=== PATIENT | female | born 1965 | race Caucasian/White ===

== ENCOUNTER → 2021-03-19 15:32 | Outpatient (CLI) | payer SELFPAY ==
--- NOTE | 2021-03-19 15:50 | RAD_ITS ---
STUDY: X-RAY - RIGHT ELBOW REASON FOR EXAM: Female, 55 years old. Right elbow pain. TECHNIQUE: 3 view(s) of the elbow. COMPARISON: None. FINDINGS: Normal visualized humerus, radius and ulna. Normal radiocapitellar and ulnotrochlear articulations. The soft tissue structures are unremarkable. RAD/Elbow min 3 Views IMPRESSION: Normal x-ray examination of the elbow. Electronically Signed: Jeff Montoya MD at 11:07 EST , Service support ,
== END ==
PROVIDERS: PCP Family Medicine; Referring Provider Family Medicine; Visit Provider Family Medicine
DX: M25.521 Pain in right elbow (principal)
CPT/HCPCS: 73080

== ENCOUNTER 2021-07-12 22:14 | Emergency (ER) | payer MEDICAID, SELFPAY ==
[2021-07-12 22:15] VITALS: BP 144/71; PULSE 67; RESP 16; TEMP 36.6; O2SAT 97; BMI 27.1
[2021-07-12 22:34] LABS: Bacteria 0 SEEN /hpf (None Seen); Mucous, Urine 0 SEEN /hpf (<or=2+); Red Blood Cells-Urine 0 SEEN /hpf (0-5); Squamous Epithelial Cells - UA 0 SEEN /hpf (5-10); White Blood Cells 0 SEEN /hpf (0-5)
[2021-07-12 22:38] LABS: Color, Urine Yellow (Yellow); Glucose, Dipstick Normal (Normal); Ketone-Dipstick Negative (Negative); Leukocyte Esterase-Dipstick Negative /ul (Negative); Nitrite-Dipstick Negative (Negative); Occult Blood-Urine Negative /ul (Negative); Protein-Dipstick Negative (Negative); Specific Gravity, Urine 1.025 (1.002-1.030); Urine Bilirubin Dipstick Negative (Negative); Urine Clarity Clear (Clear); Urine Urobilinogen Normal (Normal)
[2021-07-12] MEDS: Ondansetron 4 MG/2 ML Vial IV (23:33)
[2021-07-12] MEDS: 0.9% Normal Saline 1,000 ML 1000 ML IV (23:33)
[2021-07-12] MEDS: Morphine 4 MG/ML Syringe IV (23:35)
[2021-07-12 23:44] LABS: Absolute Lymphocyte Count 2.24 X10^3/uL (0.83-4.51); Absolute Neutrophil Count 2.5 X10^3/uL (2.0-7.7); Basophil# 0.03 X10^3/uL; Basophil% 0.6 % (0-1); Eosinophil# 0.14 X10^3/uL; Eosinophils% 2.6 % (0-5); Hematocrit 40.3 % (37-47); Hemoglobin 13.4 g/dL (12.0-15.0); Lymphocyte # 2.24 X10^3/ul (0.83-4.51); Lymphocyte % 42.1 % (19-41); Mean Corp Hgb Conc 33.3 g/dL (32-36); Mean Corpuscular Hgb 30.3 pg (27.0-32.0); Mean Corpuscular Volume 91.2 fL (81-99); Mean Platelet Vol. 10.6 fl (6.2-12.0); Monocyte# 0.44 X10^3/uL; Monocyte% 8.3 % (0-10); NRBC Flagged by Analyzer 0 % (0-5); Neutrophil # 2.46 X10^3/uL (2.7-7.7); Neutrophil % 46.2 % (47-70); Platelet Count 210 K/mm3 (150-450); RBC Distribution Width CV 11.8 % (11.6-14.6); RBC Distribution Width SD 39.7 fl (35.1-43.9); Red Blood Count 4.42 M/mm3 (4.2-5.4); White Blood Count 5.3 K/mm3 (4.4-11.0)
[2021-07-12 23:46] LABS: Internal QC Validated? YES +Cl - CLEAR BKGD; Pregnancy, Serum, hCG Quali. NEGATIVE Negative
[2021-07-12 23:49] LABS: Anion Gap 3 (5-15); BUN 13 mg/dL (7-18); Calcium,Total 8.5 mg/dL (8.5-10.1); Chloride 109 mmol/L (98-107); Creatinine, Serum 0.76 mg/dL (0.55-1.02); EST Glomerular Filtration Rate 83 mL/min (>60); Est Glom Filt Rate - Afr Amer 101 mL/min (>60); Estimated Creatinine Clearance 72.22 ml/min; Glucose 120 mg/dL (74-106); Potassium 3.7 mmol/L (3.5-5.1); Sodium Level 140 mmol/L (136-145)
--- NOTE | 2021-07-13 | CT_ITS ---
STUDY: CT ABDOMEN AND PELVIS WITHOUT CONTRAST REASON FOR EXAM: Female, 55 years old. Right flank pain RADIATION DOSAGE (If Supplied By Facility): CTDIvol = ( 12.26 ) mGy, DLP = ( 591.87 ) mGycm TECHNIQUE: Transaxial images were obtained from the dome of the diaphragm to the symphysis pubis without oral contrast, and without intravenous contrast. Sagittal and coronal images were reconstructed. Individualized dose optimization techniques were used for this CT. COMPARISON: None. FINDINGS: LOWER CHEST: Minimal dependent atelectasis. LIVER: Fatty infiltration. GALLBLADDER AND BILIARY TREE: Grossly unremarkable. PANCREAS: Grossly unremarkable. SPLEEN: Grossly unremarkable. ADRENAL GLANDS: Grossly unremarkable. KIDNEYS AND URETERS: No calculi demonstrated. No hydronephrosis. There is a small calcific density in the right lower pelvis that appears to be phlebolith adjacent to the ureter rather than ureteral calculus. PERITONEUM: No free air. No free fluid. BOWEL: A few scattered diverticula in the colon. No bowel obstruction. APPENDIX: Visualized and unremarkable. No evidence of acute appendicitis. VESSELS: Abdominal aorta is normal caliber. REPRODUCTIVE ORGANS: Grossly unremarkable URINARY BLADDER: Grossly unremarkable. ABDOMINAL WALL: Unremarkable. BONES: No acute abnormalities. CT/Abdomen/Pelvis without Cont IMPRESSION: No acute findings. Colonic diverticulosis without evidence of acute diverticulitis. Electronically Signed: Marissa Hay MD at 0:28 EDT ,
--- NOTE | 2021-07-13 00:28 | EX.ED.DYSGE1 ---
HPI History of Present Illness Chief Complaint: Flank Pain Informant: patient Onset/Context/Timing Onset: Days (4) Context: Gradual Onset Timing: Continuous Quality: Constant aching but stabbing at times Location: Right flank Worsened by: Nothing Relieved by: Nothing Narrative Narrative: Patient presents with right flank pain that has been getting worse over the last 4 days. Patient states her pain began rather suddenly. Patient describes her pain is aching but at times becomes stabbing. Patient states the pain is localized to the right flank. Patient states nothing makes it better nothing makes it worse. Patient admits to some subjective chills but denies any fevers. Patient admits to nausea but denies any vomiting. Patient denies any dysuria or hematuria. [facility] Medical History Anxiety Hyperlipemia TIA (transient ischemic attack) TMJ (dislocation of temporomandibular joint) Home Medications alprazolam 0.5 mg PO QHS 07/12/21 [History Last Taken Unknown] aspirin 81 mg PO DAILY 07/12/21 [History Last Taken Unknown] buspirone 15 mg PO BID 07/12/21 [History Last Taken Unknown] sertraline 50 mg PO DAILY PRN PRN 07/12/21 [History Last Taken Unknown] Allergy/AdvReac Type Severity Reaction Status Date / Time latex Allergy Anaphylaxis Verified 07/12/21 22:16 Social History Smoking Status: Never smoker ROS ROS ED Constitutional Constitutional ED: Reports chills and subjective; Denies fever(s) Eyes Eyes: Denies blurry vision or change in vision ENT ENT ED: Denies rhinorrhea or sore throat Cardiovascular Cardiovascular: Denies chest pain or palpitations Respiratory/Chest Respiratory/Chest: Denies cough or dyspnea Gastrointestinal Gastrointestinal: Reports nausea; Denies vomiting Genitourinary Genitourinary ED: Denies dysuria or hematuria Musculoskeletal Musculoskeletal: Reports back pain and neck pain Integumentary Denies abscess or rash Neurologic Neurologic: Reports headache(s); Denies weakness Allergic/Immunologic Allergic/Immunologic ED: Denies mouth swelling or urticaria EXAM Physical Exam Const Vital Signs: 07/12/21 22:15 Temperature 97.8 F Temperature Source Temporal Pulse Rate 67 Respiratory Rate 16 Blood Pressure 144/71 H Blood Pressure Mean 95 Pulse Ox 97 Oxygen Delivery Method Room Air Positive well nourished and well developed General Appearance ED: well developed and NAD HEENT Reports moist mucous membranes Neck supple and no JVD Resp normal respiratory effort and clear to auscultation bilaterally Cardio regular rate, regular rhythm and no murmurs GI normal to inspection, nondistended, normoactive bowel sounds Palpation: soft and tender RLQ; Negative for guarding or rebound tenderness present Back/Spine General Back: CVA tenderness right Extremity normal to inspection General Extremety ED: Negative for edema or tenderness General Extremity: Negative for edema Neuro oriented x3, CN's II-XII intact bilaterally and no sensory deficits noted Sensorium / Orientation: alert Motor Exam: strength 5/5 throughout Psych mental status grossly normal Skin no rashes or lesions noted MDM MDM MDM Narrative Medical decision making narrative: Patient was given IV fluids, morphine, and Zofran here. CBC was within normal limits. Serum hCG was negative. Urinalysis does not show any evidence of urinary tract infection. Basic metabolic profile was essentially within normal limits. CT scan of the abdomen pelvis was obtained. There is no acute abnormality noted. There is colonic diverticulosis but no evidence of diverticulitis. This was interpreted by the radiologist and reviewed by myself. Patient was advised of her findings. Patient is feeling better on reevaluation. Patient was instructed to follow-up with her primary care physician in 5 to 7 days for further evaluation. Patient understood and was agreeable with the plan. All questions were answered. Lab Data Attestation: I reviewed the patient's lab results. Labs: Laboratory Results - last 24 hr 07/12/21 07/12/21 07/12/21 22:25 23:05 23:05 WBC 5.3 RBC 4.42 Hgb 13.4 Hct 40.3 MCV 91.2 MCH 30.3 MCHC 33.3 RDW Std Deviation 39.7 RDW Coeff of Ольга 11.8 Plt Count 210 MPV 10.6 Immature Gran % (Auto) 0.200 Neut % (Auto) 46.2 L Lymph % (Auto) 42.1 H [place] % (Auto) 8.3 Eos % (Auto) 2.6 Baso % (Auto) 0.6 Absolute Neuts (auto) 2.5 Absolute Lymphs (auto) 2.24 Nucleated RBC % 0 Sodium Potassium Chloride Carbon Dioxide Anion Gap BUN Creatinine Estim Creat Clear Calc Est GFR (MDRD) Af Amer Est GFR (MDRD) Non-Af BUN/Creatinine Ratio Glucose Calcium Serum , Qual NEGATIVE Urine Color Yellow Urine Clarity Clear Urine pH 5.0 Ur Specific [place] 1.025 Urine Protein Negative Urine Glucose (UA) Normal Urine Ketones Negative Urine Occult Blood Negative Urine Nitrite Negative Urine Bilirubin Negative Urine Urobilinogen Normal Ur Leukocyte Esterase Negative Urine RBC 0 SEEN Urine WBC 0 SEEN Ur Squamous Epith Cells 0 SEEN Urine Bacteria 0 SEEN Urine Mucus 0 SEEN 07/12/21 23:05 WBC RBC Hgb Hct MCV MCH MCHC RDW Std Deviation RDW Coeff of Ольга Plt Count MPV Immature Gran % (Auto) Neut % (Auto) Lymph % (Auto) [place] % (Auto) Eos % (Auto) Baso % (Auto) Absolute Neuts (auto) Absolute Lymphs (auto) Nucleated RBC % Sodium 140 Potassium 3.7 Chloride 109 H Carbon Dioxide 28.0 Anion Gap 3 L BUN 13 Creatinine 0.76 Estim Creat Clear Calc 72.22 Est GFR (MDRD) Af Amer 101 Est GFR (MDRD) Non-Af 83 BUN/Creatinine Ratio 17.0 Glucose 120 H Calcium 8.5 Serum , Qual Urine Color Urine Clarity Urine pH Ur Specific [place] Urine Protein Urine Glucose (UA) Urine Ketones Urine Occult Blood Urine Nitrite Urine Bilirubin Urine Urobilinogen Ur Leukocyte Esterase Urine RBC Urine WBC Ur Squamous Epith Cells Urine Bacteria Urine Mucus Radiography Diagnostic Testing: Clinical Impression(s) from Imaging Studies Abdomen/Pelvis CT 07/13/21 00:00 IMPRESSION: No acute findings. Colonic diverticulosis without evidence of acute diverticulitis. Electronically Signed: Marissa Hay MD at 0:28 EDT , Discharge Plan Triage Chief Complaint: Flank Pain ED Provider: Fadi Tavarez Dx/Rx/DC Orders Clinical Impression: Acute right flank pain, Abdominal pain in female Instructions: ED Flank Pain, Uncertain Cause Prescriptions: No Action alprazolam 0.25 mg Tablet 0.5 mg PO QHS RF: 0 aspirin 81 mg Tablet 81 mg PO DAILY RF: 0 sertraline 50 mg Tablet 50 mg PO DAILY PRN PRN (Reason: Anxiety) RF: 0 buspirone 15 mg Tablet 15 mg PO BID RF: 0 Primary Care Provider: Frankie Cedeño Referrals: Frankie Cedeño MD [Primary Care Provider] - 5-7 Days Disposition Disposition: Home, Self Care
[2021-07-13 01:35] VITALS: BP 106/70; PULSE 59; RESP 16; O2SAT 96
== END 2021-07-13 01:35 | disposition home or self-care (01) ==
PROVIDERS: Emergency Provider Emergency Medicine; PCP Family Medicine; Visit Provider Emergency Medicine
DX: R10.31 Right lower quadrant pain (principal); R11.0 Nausea; E78.5 Hyperlipidemia, unspecified; F41.9 Anxiety disorder, unspecified; Z79.82 Long term (current) use of aspirin; Z79.899 Other long term (current) drug therapy; Z86.73 Personal history of transient ischemic attack (TIA), and cerebral infarction without residual deficits
CPT/HCPCS: 74176; 80048; 81001; 84703; 85025; 96361; 96374; 96375; 99282; J7030; A4216; J2405

== ENCOUNTER 2022-03-20 10:25 | Day surgery (SDC) | payer MEDICAID, SELFPAY ==
--- NOTE | 2022-03-12 09:07 | RAD_ITS ---
STUDY: X-RAY CHEST REASON FOR EXAM: Female, 56 years old. CHEST PAIN PREOP TECHNIQUE: XR Chest 2 Views COMPARISON: None FINDINGS: There is no demonstrated pleural abnormality. Normal size heart. Normal mediastinum and enoc. Normal visualized pulmonary arteries. Normal visualized aortic arch and descending thoracic aorta. Normal visualized thoracic spine. Normal visualized ribs, clavicles, and shoulders. There is no demonstrated abnormality of the visualized soft tissue structures of the upper abdomen. RAD/Chest PA and Lateral IMPRESSION: There are no acute findings. Electronically Signed: Sebastián Prescott MD at 17:51 EST ,
--- NOTE | 2022-03-12 09:07 | EKG12_ITS ---
Test Reason : PRE-OP Blood Pressure : / mmHG Vent. Rate : 066 BPM Atrial Rate : 066 BPM P-R Int : 126 ms QRS Dur : 076 ms QT Int : 414 ms P-R-T Axes : 052 049 030 degrees QTc Int : 434 ms Normal sinus rhythm Normal ECG Confirmed by LEILANI DOMINGUEZ, YOMI ([id number]), primer expeditor and drier DOUG BLAIR ([id number]) on 03/13/2022 8:33:04 AM Referred By: Jesus Weiss Confirmed By:YOMI DUKE MD
[2022-03-12 10:51] LABS: Absolute Lymphocyte Count 1.78 X10^3/uL (0.83-4.51); Absolute Neutrophil Count 3.3 X10^3/uL (2.0-7.7); Basophil# 0.04 X10^3/uL; Basophil% 0.7 % (0-1); Eosinophils% 1.8 % (0-5); Hematocrit 42.9 % (37-47); Hemoglobin 13.9 g/dL (12.0-15.0); Lymphocyte # 1.78 X10^3/ul (0.83-4.51); Lymphocyte % 31.5 % (19-41); Mean Corp Hgb Conc 32.4 g/dL (32-36); Mean Corpuscular Hgb 29.7 pg (27.0-32.0); Mean Corpuscular Volume 91.7 fL (81-99); Mean Platelet Vol. 10.5 fl (6.2-12.0); Monocyte# 0.44 X10^3/uL; Monocyte% 7.8 % (0-10); NRBC Flagged by Analyzer 0 % (0-5); Neutrophil # 3.27 X10^3/uL (2.7-7.7); Neutrophil % 57.8 % (47-70); Platelet Count 221 K/mm3 (150-450); RBC Distribution Width CV 12.1 % (11.6-14.6); RBC Distribution Width SD 40.8 fl (35.1-43.9); Red Blood Count 4.68 M/mm3 (4.2-5.4); White Blood Count 5.7 K/mm3 (4.4-11.0)
[2022-03-12 11:28] LABS: Anion Gap 6 (5-15); BUN 12 mg/dL (7-18); BUN/Creat Ratio 13.4 RATIO (10-20); Calcium,Total 8.7 mg/dL (8.5-10.1); Chloride 105 mmol/L (98-107); EST Glomerular Filtration Rate 69 mL/min (>60); Est Glom Filt Rate - Afr Amer 84 mL/min (>60); Glucose 92 mg/dL (74-106); Potassium 3.6 mmol/L (3.5-5.1); Sodium Level 140 mmol/L (136-145)
[2022-03-20] VITALS (11 sets, daily range): BP systolic 113–157; BP diastolic 57–89; PULSE 67–85; RESP 16–18; TEMP 36–36.8; O2SAT 92–98; BMI 29.9
[2022-03-20] MEDS: Lactated Ringers 1,000 ML 15 ML IV (11:09)
[2022-03-20] MEDS: Cefazolin 2 GM in 0.9% Normal Saline 100 ML IV (12:43)
--- NOTE | 2022-03-20 12:50 | RAD_ITS ---
STUDY: X-RAY - LEFT WRIST REASON FOR EXAM: Female, 56 years old. PAIN TECHNIQUE: 5 intraoperative view(s) of the wrist were obtained. COMPARISON: None. FINDINGS: 5 limited intraoperative C-arm films were performed as the patient has undergone surgery to remove the trapezium. No intraoperative complications noted. RAD/Wrist min 3 Views IMPRESSION: No intraoperative complications during surgery to remove the trapezium Electronically Signed: Stan Kathleen MD at 8:43 EST ,
[2022-03-20] MEDS: HYDROcodone Bitartrate/Apap 5/325 Tablet PO (17:17)
--- NOTE | 2022-03-20 23:18 | PCM.OPRPT ---
Report of Operation Date of Procedure: 03/20/22 Description of Surgical Findings:: Preoperative diagnosis: Left first carpal metacarpal joint arthritis Postoperative diagnosis: Left first carpal metacarpal joint arthritis Procedure: Left thumb trapeziectomy with ligament reconstruction tendon interposition with flexor carpi radialis tendon transfer Surgeon: Jesus Weiss DO Display Coordinator: None Anesthesia: General endotracheal Anesthesiologist: Dr. Welsh Complications: None apparent Drains: None Estimated blood loss: 10 cc Urinary output: None measured IV fluids: Per anesthesia record Specimens: None Surgical implants: Arthrex 4 mm x 10 mm Bio-Tenodesis screw Surgical indications: This is a 56-year-old male seen in the outpatient setting diagnosed with a left basal joint arthritis of her first CMC. She failed nonoperative management with activity modification, bracing and corticosteroid injections. She had end-stage arthritis on x-ray with dorsal and radial subluxation of the first metacarpal base. She had no hyperextension deformity of his metacarpal phalangeal joint of the thumb. Right first carpometacarpal joint arthroplasty in the form trapeziectomy with ligament reconstruction tendon interposition with flexor carpi radialis tendon transfer was offered. The risk, benefits, alternatives to procedure were reviewed with patient at length in the outpatient setting and he agreed to proceed. Risks included but were not limited to bleeding, infection, loss of life or limb, risk of anesthesia, subsidence of metacarpal base, persistent pain, need for additional surgery, stiffness, loss of hand function, neurovascular injury. Patient expressed understanding wish to proceed with surgery. Description of procedure: Patient was seen in preoperative holding area. He was identified by name, medical record number, date of . The operative extremity was marked with a surgical marker. We confirmed informed consent with the patient and all questions were answered to his satisfaction. At time of her procedure, patient was brought to the operative suite and positioned supine a standard operating table. All bony prominences were well-padded. General anesthesia was induced and endotracheal tube placed. The left upper extremity was then prepped for surgery by first applying a well-padded pneumatic tourniquet to the left upper arm. The hand table attached to the left side of the table. We spun the bed 90 degrees. The right upper extremities then prepped and draped in normal, sterile orthopedic fashion. 2 g Ancef was administered prior to incision by anesthesia staff. We performed a timeout at this point confirming side, site, and operation to be performed. No concerns voiced and elected to proceed. We first exsanguinated the right upper extremity with a an Esmarch bandage. Tourniquet was inflated to 250 mmHg were made up for approximately 45 minutes. I first made my incision overlying the anatomic snuffbox of the right dorsal first CMC. Incision was carried sharply through skin and subcutaneous tissue. Superficial veins were cauterized. Superficial sensory branches from the radial nerve were protected and retracted. We bluntly dissected through the fascia down to the level of the dorsal branch of the radial artery. I retracted this dorsally after cauterizing capsular branches from the radial artery using bipolar cautery. We then identified the dorsal radial capsule of the first CMC. This was split in line with the incision and elevated subperiosteally. The trapezium was then freed from capsular attachment sharply with 15 blade scalpel and subsequently with a McGlamry elevator. We were able to free the trapezium circumferentially and excised the trapezium en bloc. This was examined and had severe degenerative changes on the distal articular surface at the first CMC. The trapezoid was examined and appeared unremarkable. The FCR was identified in the wound. The wound was copiously irrigated with normal saline and any loose pieces of cartilage were debrided. I then turned my attention to the flexor carpi radialis and the right mid to distal forearm. A transverse incision approximately 5 mm was made overlying the flexor carpi radialis tendon. Superficial vein was identified and cauterized with bipolar cautery. I was then able to bluntly dissect through the tendon sheath down the level of the tendon. A Ragnell retractor was placed underneath the tendon and the tendon was pulled out of the wound. Sharply transected the tendon at the level of the incision. I then used a right angle hemostat to retrieve the flexor carpi radialis tendon from the distal wound. I split the flexor carpi radialis tendon in line with its fibers to obtain 2 distinct limbs. One limb was tagged in whipstitch fashion with a #2 Ethibond for transfer for our planned tendon transfer. I then prepared our bone tunnel for transfer. A drill pin was utilized to drill dorsal radial to ulnar ulnar across the base of the first metacarpal. My entry point was approximately 1 cm from the articular surface. This was directed to the insertion point of the [place] beak ligament. Proper trajectory was confirmed. FCR was protected through the drilling process with a McGlamry elevator. A cannulated drill bit was then placed over top of the drill pin and drilled bicortically. A nitinol wire was used to past the suture tack to the FCR tendon slip through the bone tunnel retrieving out the dorsoradial portion. I then applied a abduction force across the base the first metacarpal and placed it with my index finger in the space of the former trapezium with appropriate tension. My assistant manager of operations pulled some traction on the thumb. I pulled traction on the slip of the FCR and the Arthrex Bio-Tenodesis screw was then placed to secure the tendon. Minimal amount of shuck and no significant subsidence was noted after the tendon was secured. I then placed a running stitch through both slips of the tendon securing it to the palmar first CMC wrist capsule. Suture was tightened achieving an accordion configuration of the remaining FCR tendon to achieve an interposition graft. We then deflated the tourniquet. Hemostasis was excellent. I closed the capsule in watertight fashion with an 0 Vicryl suture. Subcutaneous layers were reapproximated with 3-0 Vicryl in a running subcuticular Monocryl. Dermabond was used to finally reapproximate skin. Sterile compression dressing was applied. A well-padded thumb spica fiberglass splint was then applied. Patient tolerated procedure well without apparent complication. She was subsequently extubated and transferred to PACU in stable condition. Patient received an axillary nerve block in the PACU for postoperative analgesia. Intraoperative medications: 2 g Ancef administered by anesthesia prior to incision Post Operative Plan: Weightbearing: Nonweightbearing operative extremity Antibiotics: Ancef 2 g x 1 dose preoperatively DVT Prophylaxis: 81 mg aspirin twice daily until follow-up starting postoperative day #1 Lyle: None Dressing: Maintain splint, keep it clean dry and intact until follow-up X-Rays: 2 weeks postop in the office Pain Medication: Oxycodone Rx upon discharge Follow-up: 2 weeks post-operatively with me in the office
== END 2022-03-20 18:38 | disposition home or self-care (01) ==
LOC: SDC 10:27 → AC 10:30
PROVIDERS: PCP Family Medicine; Referring Provider Student in an Organized Health Care Education/Training Program; Visit Provider Student in an Organized Health Care Education/Training Program
PROC: (CPT 25447; principal; 2022-03-20 13:15)
DX: S63.06 Subluxation and dislocation of metacarpal (bone), proximal end (principal); Z96.691 Finger-joint replacement of right hand; M18.12 Unilateral primary osteoarthritis of first carpometacarpal joint, left hand; F41.9 Anxiety disorder, unspecified; K21.9 Gastro-esophageal reflux disease without esophagitis; E78.5 Hyperlipidemia, unspecified; Z86.73 Personal history of transient ischemic attack (TIA), and cerebral infarction without residual deficits; E66.3 Overweight; Z68.29 Body mass index [BMI] 29.0-29.9, adult
CPT/HCPCS: 26480; 25310; 01810; 36415; 71046; 73110; 76000; 80048; 85025; 93005; C1776; J7120; J2405

== ENCOUNTER → 2022-03-26 | Outpatient (CLI) | payer MEDICAID, SELFPAY ==
--- NOTE | 2022-03-26 14:52 | VDLE_ITS ---
Reason For Study: SWELLING RIGHT LEFT GSV is normal. GSV is normal. CFV is compressible, spontaneous, phasic, CFV is compressible, spontaneous, phasic, competent and demonstrates normal competent, and demonstrates normal augmentation. augmentation. FV is compressible, spontaneous, phasic, FV is compressible, spontaneous, phasic, competent and demonstrates normal competent and demonstrates normal augmentation. augmentation. POP V is compressible, spontaneous, phasic, POP V is compressible, spontaneous, phasic, competent and demonstrates normal competent and demonstrates normal augmentation. augmentation. T/P Trunk is compressible. T/P Trunk is compressible. PTV is compressible. PTV is compressible. RT PerV is compressible. LT PerV is compressible. Procedure This is a venous duplex using B-mode, color flow and spectral Doppler. Exam performed in department. The exam was diagnostic. A preliminary report was called and/or faxed to Dr. Weiss @ [phone] @ 3:25 pm. VL/Venous Duplex US - Kp Extrem Interpretation Summary Deep veins of the bilateral lower extremities are patent and compressible segme ntally. There is no evidence of bilateral lower extremity deep vein thrombosis. The bilateral great saphenous veins appear patent and compressible segmentally. Ordering Physician: Jesus Weiss Referring Physician: Frankie Cedeño Performed By: Jessie Kimbrough, RDCS, RVT
== END | disposition home or self-care (01) ==
LOC: CVS 14:50
PROVIDERS: PCP Family Medicine; Referring Provider Student in an Organized Health Care Education/Training Program; Visit Provider Student in an Organized Health Care Education/Training Program
DX: R22.41 Localized swelling, mass and lump, right lower limb (principal); R22.42 Localized swelling, mass and lump, left lower limb
CPT/HCPCS: 93970

== ENCOUNTER 2022-05-21 11:30 | Outpatient (RCR) | payer MEDICAID, SELFPAY ==
--- NOTE | 2022-04-07 17:52 | HP.OTEVAL ---
Patient's Visit Information GISELL ARMSTRONG is a 56 year old F, referred to Occupational Therapy by Dr. Jesus Weiss DO, with a diagnosis of left CMC OA. Date of Evaluation: 04/07/22 Occupational Therapist: ZEUS Rebollar/Dyan, CHT - Subjective This 56 year old female was seen for OT eval with dx of left 1st CMC joint arthritis. pt states she had difficulty with left thumb pain for over 6 months. she states she tried cortisone shot but did not help- Dr. stroud sx. CMC arthroplasty pt has sx 03/20/22. pt arrives 2 weeks and 4 days s/p from left CMC arthroplasty. pt in need for custom orthosis for protection support while soft tissue structures are healing. 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 - Pain left hand 5 Pain Intensity Range: 2, 5 - ROM Wrist: right 65/70 left 30/10 CMC: right 10 left NT (will test s/p week 4) MP: right 55 left NT (will test s/p week 4) IP: right 40 left 25 Radial Abduction: right 45 ROM Comments: pt 1.5 away from composite fist. - Strength Sweatband Cutting Machine Operator: right 45# left NT Lateral Pinch: right 8# left NT Tripod Pinch: right 12# left NT Strength Comments: left hand strength will be tested at later date - Edema PIP: right 5.4 left 6.0 - Sensation Sensation Comments: tingling of thumb MP distally and IF ( radial nerve irritation from sx) - Quick DASH-Disab of Arm,Shoulder& Hand Quick DASH Score: 76.6650 - Goals Goal:100% adherence to protocol: Yes Comment: CMC arthroplasty protocol Goal:Daily scar massage when approriate: Yes Goal:ROM equal to unaffected hand: Yes Goal:Sweatband Cutting Machine Operator/Pinch strength at least 75% of unaffected hand: Yes Comment: will not initiate until week6-8 based on pts progress Goal:No pain with affected hand use: Yes Goal:PIP Circumferences equal to unaffected hand: Yes Goal:Full use of affected hand in daily activities including: Yes - Rehabilitation General Assessment: pt 2 weeks and 4 days s/p from left thumb trapeziectomy with ligament reconstruction tendon interposition with flexor carpi radials tendon transfer. Pt currently has newly healing structures, limited ROM and currently NWB of left UE. pt limited with all ADLS and IADls at this time. pt is in need of skilled OTR//L,CHT services 1-2x week for next 8 weeks to elizabeth. custom orthosis to provide support and protection while soft tissue is healing as well as returning pts ROM and strength to her PLOF. Today therapist elizabeth. custom orthosis, ed. in precautions, wearing and care of orthosis and recovery guidelines following a CMC arthroplasty. Pt demo understanding and agree to POC. Rehabilitation Potential: Good - Anticipated Interventions A/AAROM/PROM, Strengthening, Edema Control, Scar Care, Sensory Retraining, Modalities, Orthoses, Joint Protection/Energy Conservation, Ergonomic Education, Fine Motor Coord/Sarath, Education re assistive Equipment, Education re Diagnosis, Caregiver Training, Home Program - Visit Plan Frequency: 1-2x /Week Duration: 2 Months General Plan: CMC arthroplasty guidelines. Week 2: exercise- AROM performed for digits and thumb IP joint only Begin short arc wrist motion - initiate scar mtg. Week 4: Begin PROM to wrist if tight- AROM for thumb CMC- joint- cont. scar mtg/edema control (modalities as indicated for pain and edema. Week 6: comfort cool splint orthoplast splint at night and heavy activity. Exercise: start gentle strengthening(thera-putty), progress as tolerated. Progress to wrist strengthening and heavier prehension tasks at 8 weeks post-operative. *Avoid forceful extension of thumb *. Week 8 D/C orthoplast splint by week 8 except for heavy activity PRN -progress to wrist strengthening and heavier prehension tasks. *Avoid forceful extension of the thumb* TEXT: Thank you for the opportunity to evaluate your patient. For Medicare and Medicare HMO plans, please review the plan of care and approve it. It will need to be FAXED BACK to us at [phone] for Medicare purposes. Please let me know if there are questions or concerns regarding this plan of care. Physician Signature: Date:
--- NOTE | 2022-07-22 07:51 | HP.OT.NRP ---
GISELL ARMSTRONG was seen in my office for initial evaluation on 04/07/22. 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 Pertinent comments regarding their Occupational therapy will appear below: PT was seen until she was 6 weeks s/p from cmc arthroplasty- pt had change of insurance and was seen last two visits as a no charge due to coverage- pt voice her insurance was going to change May and she could continue with her therapy- Pt was last seen on 05/21/22 left wrist 48/40 left thumb 15* left MP 45 left IP 50 PA 50* pt making better gains with her ROM dumper bailer operator strength 20# pt was to continue therapy services but did not schedule further apts after this date 05/21/22 and due to time lapse in services pt d/c. At this point I will be discontinuing this patient from occupational therapy. I would be happy to see this patient again in the future if found appropriate by the physician. Thank you! Nadja Vidales, OTR/L, CHT
== END 2022-05-21 19:00 | disposition home or self-care (01) ==
LOC: OT 11:30
PROVIDERS: PCP Family Medicine; Referring Provider Student in an Organized Health Care Education/Training Program; Visit Provider Student in an Organized Health Care Education/Training Program
DX: M18.12 Unilateral primary osteoarthritis of first carpometacarpal joint, left hand (principal)
CPT/HCPCS: 97110; 97140; 97166; 97530; 97760

== ENCOUNTER 2022-12-12 10:30 | Outpatient (RCR) | payer MEDICAID, SELFPAY ==
--- NOTE | 2022-11-14 15:06 | HP.PTEVAL_ITS ---
Patient's Visit Information Visit Information Visit Information: GISELL ARMSTRONG is a 57 year old F referred to Physical Therapy by Dr. Slava Del Real DO with a diagnosis of SPINAL STENOSIS ,CERVICAL ,SPONDYLOSIS WITH RADICULOPATHY ,CERVICAL , DDD. Date of Evaluation: 11/14/22 Physical Therapist: Jay Jay Day, PT, Cert MDT, OCS Visit Plan Frequency: 2-3x /Week Duration: 6 Weeks Plan: PRECAUTIONS: LATEX ALLERGY PT INTERVETIONS CERVICAL ROM ,POSTURAL EX''S ,STRENGTHENING , AND BUE STRENGTHENING AND Subjective Subjective: This 57 y/o female presents to physical therapy cervical stenosis . Patient underwent s/p cervical fusion plate screws on October 01 at [facility] by DR Del Real . Patient was d/c October 03 to monitor heart . Patient d/c home with cervical aspen brace 6 weeks and d/c cervical brace but wears it at night as needed. Patient medication was gabapentin and tramadol. Patient has no restriction since last Thursday and x-rays looked good. Prior to surgery pain cervical radiculopathy in left cervical to arm thus MRI prior to surgery DDD , stenosis. No prior PT . Currently, patient has mild pain neck without radicular symptoms . Denies paresthesia/tingling. Denies GUNTER/tinnitus/dizziness/nausea. Sleeping okay with brace neck. Patient has difficulty with ADLS and housework tasks /job demands. 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 Pain Bilateral Neck: Pain Intensity (Out of 10): 4 Pain Intensity Range: 10 Objective Objective: POSTURE: rounded shoulders ,head forward PALAPTION: tender UT/levator INSCION: well approximate NEURO: denies paresthesia/tingling ,reflexes C5-6-7 2/3 CERVICAL ROM: flexion mod loss ,rotation/lateral flexion min/mod loss right ,mod left ,extension mod /severe loss MMT: grossly 4/5 FIRER LOW PRESSURE STRENGTH: good Special Tests C/S Radiculapathy - Left Upper limb tension test: Positive C/S Radiculapathy - Right Upper limb tension test: Positive Balance/Special Test Scores Oswestry Neck Score: 20 Goals Goal 1:: Patient to be I with HEP for cervical. Goal Time Frame: 4-6 Weeks Goal 2:: Patient to improve posture for ADLS 90% for job demands. Goal Time Frame: 4-6 Weeks Goal 3:: Patient 70% improvement with improved function and ADLs and job demands Goal Time Frame: 4-6 Weeks Goal 4:: Patient to improve neck oswestry score by 5 points to improve function and ADLS Goal Time Frame: 4-6 Weeks Goal 5:: Patient return to RTW without limitations. Goal Time Frame: 4-6 Weeks Goal 6:: Patient will be able 6 hours of sleep with min to no pain Goal Time Frame: 4-6 Weeks Rehabilitation Potential Physical Therapy Diagnosis: This patient underwent s/p cervical fusion with dec rease ROM , posture and RTW thus benefit from skilled PT Rehabilitation Potential: Good Anticipated Interventions Patient/Client Instruction: Educate patient on: Condition and Plan of Care For the Purpose of:: To decrease pain, To improve nutrient delivery to tissue, To increase oxygenation perfusion, To improve muscle performance and motor function, To increase tolerance to activity/condition/position, To improve ability of physical actions for home/community/work/leisure, To improve health of tissue, To decrease soft tissue restriction, To increase flexibility/ROM, To improve health and function and To improve tolerance to ADL's Therapeutic Exercise to Include: Strength training, Postural training, Flexibilty training and Active ROM For the Purpose of:: To decrease pain, To increase ROM, To improve ability to perform ADL's, To increase tolerance to activity/condition/position, To improve ability of physical actions for home/community/work/leisure, To improve health of tissue, To decrease soft tissue restriction, To increase flexibility/ROM and To improve tolerance to ADL's Text: Thank you for the opportunity to evaluate your patient. For Medicare and Medicare HMO plans, please review the plan of care and approve it. It will need to be FAXED BACK to us at [phone] for Medicare purposes. For Medicare only, by signing this I certify the plan of care. Please let me know if there are questions or concerns regarding this plan of care. Physician Signature: Date:
== END 2022-12-12 23:59 | disposition home or self-care (01) ==
LOC: PT 10:30
PROVIDERS: PCP Family Medicine; Referring Provider Orthopaedic Surgery; Visit Provider Orthopaedic Surgery
DX: M48.02 Spinal stenosis, cervical region (principal); M47.22 Other spondylosis with radiculopathy, cervical region; M50.321 Other cervical disc degeneration at C4-C5 level
CPT/HCPCS: 97110; 97162

== ENCOUNTER 2024-02-25 18:12 | Emergency (ER) | payer MEDICAID, SELFPAY ==
[2024-02-25 18:13] VITALS: BP 134/100; PULSE 120; RESP 18; TEMP 36.4; O2SAT 99
[2024-02-25 18:55] VITALS: BMI 30.3
--- NOTE | 2024-02-25 18:57 | EKG12_ITS ---
Test Reason : DYSRHYTHMIA Blood Pressure : */* mmHG Vent. Rate : 95 BPM Atrial Rate : 95 BPM P-R Int : 148 ms QRS Dur : 76 ms QT Int : 364 ms P-R-T Axes : 71 43 48 degrees QTcB Int : 457 ms Normal sinus rhythm Nonspecific T wave abnormality Abnormal ECG Confirmed by Jaswinder Mcclure ([id number]), news assignment editor CROW JASON ([id number]) on 02/26/2024 1:46:52 PM Referred By: Obinna Valerio Confirmed By: Jaswinder Mcclure
[2024-02-25] MEDS: Ondansetron 4 MG/2 ML Vial IV (19:05)
[2024-02-25 19:08] LABS: Absolute Lymphocyte Count 0.55 X10^3/uL (0.83-4.51); Absolute Neutrophil Count 8.1 X10^3/uL (2.0-7.7); Basophil# 0.02 X10^3/uL; Basophil% 0.2 % (0-1); Hematocrit 46.2 % (37-47); Hemoglobin 15.1 g/dL (12.0-15.0); Lymphocyte # 0.55 X10^3/ul (0.83-4.51); Lymphocyte % 6.1 % (19-41); Mean Corp Hgb Conc 32.7 g/dL (32-36); Mean Corpuscular Hgb 28.5 pg (27.0-32.0); Mean Corpuscular Volume 87.2 fL (81-99); Mean Platelet Vol. 10.4 fl (6.2-12.0); Monocyte# 0.27 X10^3/uL; NRBC Flagged by Analyzer 0 % (0-5); Neutrophil % 90.4 % (47-70); POSITIVE DIFFERENTIAL YES; Platelet Count 250 K/mm3 (150-450); RBC Distribution Width CV 12.5 % (11.6-14.6); RBC Distribution Width SD 39.8 fl (35.1-43.9)
[2024-02-25 19:22] LABS: Red Blood Cells-Urine 0 SEEN /hpf (0-5)
[2024-02-25 19:25] LABS: AST(SGOT) 33 U/L (15-37); Alanine Aminotransfer ALT/SGPT 54 U/L (13-56); Alkaline Phosphatase 71 U/L (45-117); Anion Gap 7 (5-15); BUN 20 mg/dL (7-18); Calcium,Total 9.2 mg/dL (8.5-10.1); Chloride 107 mmol/L (98-107); Creatinine, Serum 1.11 mg/dL (0.55-1.02); EST Glomerular Filtration Rate 54 mL/min (>60); Est Glom Filt Rate - Afr Amer 65 mL/min (>60); Estimated Creatinine Clearance 56.74 ml/min; Glucose 132 mg/dL (74-106); Sodium Level 140 mmol/L (136-145)
[2024-02-25 19:35] LABS: Color, Urine Yellow (Yellow); Glucose, Dipstick Normal (Normal); Ketone-Dipstick 5 mg/dl (Negative); Leukocyte Esterase-Dipstick Negative /ul (Negative); Nitrite-Dipstick Negative (Negative); Occult Blood-Urine Negative /ul (Negative); Protein-Dipstick 30 mg/dl (Negative); Specific Gravity, Urine 1.025 (1.002-1.030); Urine Clarity Clear (Clear); Urine Urobilinogen Normal (Normal)
--- NOTE | 2024-02-25 19:37 | CT_ITS ---
EXAM: CT ABDOMEN AND PELVIS WITH INTRAVENOUS CONTRAST CLINICAL INDICATION: RLQ pain TECHNIQUE: Helically acquired images were obtained of the abdomen and pelvis with intravenous contrast. This CT exam was performed using one or more of the following dose reduction techniques: automated exposure control, adjustment of the mA and/or kV according to patient size, and/or use of iterative reconstruction technique. CONTRAST: IV 100mL [id number]-370 COMPARISON: 07/12/2021 FINDINGS: LOWER THORAX: No significant abnormality. Lung bases are clear. No cardiomegaly. No significant pericardial effusion. ABDOMEN: LIVER: Low-attenuation throughout the liver suggesting fatty infiltration with minimal focal sparing near the falciform ligament. GALLBLADDER AND BILE DUCTS: No significant abnormality. No calcified gallstones. No gallbladder distention or wall edema. No intra- or extrahepatic biliary ductal dilation. PANCREAS: No significant abnormality. No focal cystic or solid mass. SPLEEN: No significant abnormality. Normal size without focal cystic or solid mass. ADRENALS: No significant abnormality. No nodules. KIDNEYS AND URETERS: No significant abnormality. Normal renal size and position. No hydronephrosis. STOMACH AND BOWEL: Minimal colonic diverticulosis without evidence of acute diverticulitis. No stomach or bowel distention. PELVIS: APPENDIX: Normal appendix in the right lower quadrant. BLADDER: No significant abnormality. REPRODUCTIVE: Normal as visualized. No mass. ABDOMEN and PELVIS: INTRAPERITONEAL SPACE: No significant abnormality. No ascites or other fluid collection. No free air. BONES/JOINTS: Degenerative changes in the spine. No suspicious lytic or blastic abnormality. SOFT TISSUES: No significant abnormality. No discrete abdominal or pelvic wall hernia. VASCULATURE: No significant abnormality. Abdominal aorta is non-dilated. LYMPH NODES: No significant abnormality. No enlarged lymph nodes. CT/Abdomen/Pelvis W IV Cont ONLY IMPRESSION: 1. Normal appendix. No appendicitis. 2. Fatty liver. 3. Minimal colonic diverticulosis without evidence of acute diverticulitis. Electronically Signed: Brandyn Velasquez DO at 20:18 EST ,
[2024-02-25 19:40] LABS: Urine Bilirubin Dipstick 1 mg/dL (Negative)
[2024-02-25 19:52] LABS: Lipase 25 U/L (13-75)
[2024-02-25 19:57] LABS: Bacteria 2+ /hpf (None Seen); Squamous Epithelial Cells - UA 25-50 SEEN /hpf (5-10); White Blood Cells 0-5 SEEN /hpf (0-5)
[2024-02-25 19:58] LABS: Hyaline Cast 10-25 SEEN /lpf (0-5); Mucous, Urine 2+ /hpf (<or=2+)
[2024-02-25 20:12] VITALS: BP 123/78; PULSE 95; RESP 18; O2SAT 94
--- NOTE | 2024-02-25 20:29 | EDS_ITS ---
HPI History of Present Illness Chief Complaint: Abd Pain Narrative Narrative: Patient is a 58-year-old female with a past medical history of IBS, GERD, hyperlipidemia, TIA, anxiety who presented to the emergency department chief complaint of abdominal pain. Patient states that since 3 AM this morning she woke up and noted that she had abdominal pain in the right lower portion of her abdomen. States that she has had nausea vomiting diarrhea associated with this and states that her symptoms were not improving therefore she came here for further evaluation management. Patient denies any previous abdominal surgeries. Patient states that she has had this in the past but it went away after couple hours and this time it did not therefore she was concerned. Patient denies any recent sick contacts. Patient rates her pain a 4 out of 10 currently. PFSH PFS Medical History Post-menopausal Wears glasses Wears dentures History of steroid therapy Arthritis Back pain Migraine headache Injury of head and neck History of IBS Gastric reflux Non-smoker Shortness of breath on exertion Leg cramps History of pain when walking History of stress test TMJ (dislocation of temporomandibular joint) Hyperlipemia Anxiety TIA (transient ischemic attack) Home Medications ?Medication ?Instructions ?Recorded ?Last Taken ?Type alprazolam 0.25 mg tablet 0.5 mg PO QHS 07/12/21 Unknown History aspirin 81 mg tablet 81 mg PO DAILY 07/12/21 03/19/22 History buspirone 15 mg tablet 15 mg PO BID 07/12/21 Unknown History sertraline 50 mg tablet 50 mg PO DAILY 07/12/21 03/20/22 History omeprazole 20 mg capsule,delayed 20 mg PO DAILY 03/11/22 Unknown History release oxycodone 5 mg tablet 5 mg PO Q4H PRN pain 7 days #42 03/20/22 Unknown Rx tabs dicyclomine 10 mg capsule 10 mg PO TID #30 caps 02/25/24 Unknown Rx ondansetron 4 mg disintegrating 4 mg PO Q6H PRN nausea and 02/25/24 Unknown Rx tablet vomiting #20 tabs Allergy/AdvReac Type Severity Reaction Status Date / Time latex Allergy Anaphylaxis Verified 02/25/24 18:13 Social History Smoking Status: Never smoker ROS ROS ED ROS Narrative Constitutional: Denies any fever, chills, headaches malaise, dizziness Eyes: Denies change in vision double vision blurry vision Cardiovascular: Denies chest pain or palpitations Respiratory: Denies coughing wheezing shortness of breath Abdomen: Complains of abdominal pain nausea vomiting diarrhea as noted above : Denies any urinary symptoms Neurological: Denies any numbness, weakness, tingling Musculoskeletal: Denies back pain Skin: Denies any rashes or lesions EXAM Physical Exam Narrative Exam Narrative: General: Patient lying in bed rest comfortably did not appear to be in acute distress Head: Atraumatic, normocephalic Eyes: PERRL bilateral, EOMI bilateral, no conjunctival injection noted Neck: Soft, supple, trachea midline Cardiovascular: Regular rate and rhythm no murmurs gallops rubs noted Respiratory: Clear to auscultation bilaterally Abdomen: Soft, nondistended, tender to palpation the right lower quadrant no rebound or guarding on exam Extremities: +5/5 strength noted in the bilateral upper and lower extremities, no pedal edema no exam, radial pulses +2/4 in the bilateral per extremities Neurological: Patient is following commands knew that she was at [facility] year is 2023 Skin: Warm, dry, intact no rashes or lesions noted Const Vital Signs: 02/25/24 18:13 02/25/24 20:12 Temperature 97.6 F L Temperature Source Temporal Pulse Rate 120 H 95 Respiratory Rate 18 18 Blood Pressure 134/100 H 123/78 H Blood Pressure Mean 111 93 Pulse Ox 99 94 Oxygen Delivery Method Room Air Room Air MDM MDM MDM Narrative Medical decision making narrative: Patient is a 58-year-old female who presented to the emergency department with a chief complaint of abdominal pain nausea vomit diarrhea. Patient will have a workup performed here on the differential diagnose includes but not limited to viral gastroenteritis, appendicitis, cholecystitis. Once workup is obtained reviewed she will be reevaluated. Acute patient CBC reviewed and showed no evidence leukocytosis white blood count normal at 9, hemoglobin 15.1, platelet count normal at 250. Patient sodium normal at 140, potassium normal at 4, creatinine normal 1.11. Patient's AST and ALT were 33 and 54 respectively. Patient lipase normal at 25. Patient's total bilirubin normal at 0.50. Patient's urinalysis reviewed and showed negative nitrates, negative leukocyte esterase 0-5 white cells with 2+ bacteria however there was noted to be 20-50 squamous epithelial cells patient does not have any urinary symptoms therefore this will be sent for culture she was advised to follow-up on this with her primary care physician in the outpatient setting. Patient CT abdomen pelvis with IV contrast reviewed and showed normal appendix, fatty liver, minimal colonic diverticulosis without evidence of acute diverticulitis. Discussed results with the patient and she is feeling better she would like to go home at this point time. Patient will be given a prescription for Bentyl and Zofran. She is advised to follow-up with her primary care physician outpatient setting. All question concerns answered she is discharged home in stable condition Lab Data Labs: Laboratory Results - last 24 hr 02/25/24 02/25/24 18:55 19:06 WBC 9.0 RBC 5.30 Hgb 15.1 H Hct 46.2 MCV 87.2 MCH 28.5 MCHC 32.7 RDW Std Deviation 39.8 RDW Coeff of Ольга 12.5 Plt Count 250 MPV 10.4 Immature Gran % (Auto) 0.300 Neut % (Auto) 90.4 H Lymph % (Auto) 6.1 L Bradford % (Auto) 3.0 Eos % (Auto) 0.0 Baso % (Auto) 0.2 Absolute Neuts (auto) 8.1 H Absolute Lymphs (auto) 0.55 L Nucleated RBC % 0 Sodium 140 Potassium 4.0 Chloride 107 Carbon Dioxide 27.0 Anion Gap 7 BUN 20 H Creatinine 1.11 H Estim Creat Clear Calc 56.74 Est GFR (MDRD) Af Amer 65 Est GFR (MDRD) Non-Af 54 L BUN/Creatinine Ratio 18.0 Glucose 132 H Calcium 9.2 Total Bilirubin 0.50 AST 33 ALT 54 Alkaline Phosphatase 71 Total Protein 8.0 Albumin 4.0 Globulin 4.0 Albumin/Globulin Ratio 1.0 Lipase 25 Urine Color Yellow Urine Clarity Clear Urine pH 5.0 Ur Specific [place] 1.025 Urine Protein 30 H Urine Glucose (UA) Normal Urine Ketones 5 H Urine Occult Blood Negative Urine Nitrite Negative Urine Bilirubin 1 H Urine Urobilinogen Normal Ur Leukocyte Esterase Negative Urine RBC 0 SEEN Urine WBC 0-5 SEEN Ur Squamous Epith Cells 25-50 SEEN Urine Bacteria 2+ Hyaline Casts 10-25 SEEN Urine Mucus 2+ Radiography Diagnostic Testing: Clinical Impression(s) from Imaging Studies Abdomen/Pelvis CT 02/25/24 19:37 IMPRESSION: 1. Normal appendix. No appendicitis. 2. Fatty liver. 3. Minimal colonic diverticulosis without evidence of acute diverticulitis. Electronically Signed: Brandyn HarrySen Velasquez DO at 20:18 EST , Discharge Plan Triage Chief Complaint: Abd Pain Other Complaint: Nausea/Vomiting/Diarrhea ED Provider: Obinna Valerio Dx/Rx/DC Orders Clinical Impression: Abdominal pain Prescriptions: New dicyclomine 10 mg capsule 10 mg PO TID Qty: 30 0RF ondansetron 4 mg tablet,disintegrating 4 mg PO Q6H PRN (Reason: nausea and vomiting) Qty: 20 0RF No Action alprazolam 0.25 mg Tablet 0.5 mg PO QHS aspirin 81 mg Tablet 81 mg PO DAILY sertraline 50 mg Tablet 50 mg PO DAILY buspirone 15 mg Tablet 15 mg PO BID omeprazole 20 mg Capsule,Delayed Release(Dr/Ec) 20 mg PO DAILY oxycodone 5 mg tablet 5 mg PO Q4H PRN (Reason: pain) 7 Days Qty: 42 0RF Primary Care Provider: Frankie Cedeño Referrals: Frankie Cedeño MD [Primary Care Provider] - Activity Restrictions/Additional Instructions: Follow-up with your doctor in the outpatient setting. Return with worsening symptoms or other concerns. Take prescriptions as prescribed. Follow-up on your urine culture with your family physician. Print Language: Bruneian Disposition Disposition: Home, Self Care
[2024-02-25 20:43] VITALS: BP 123/78; PULSE 98; RESP 16; TEMP 36.8; O2SAT 93
== END 2024-02-25 20:58 | disposition home or self-care (01) ==
PROVIDERS: Emergency Provider Emergency Medicine; PCP Family Medicine; Referring Provider Emergency Medicine; Visit Provider Emergency Medicine
DX: R10.31 Right lower quadrant pain (principal)
CPT/HCPCS: 74177; 80053; 81001; 83690; 85025; 93005; 96374; 99283; Q9967; A4216; J2405

== ENCOUNTER 2024-02-27 10:29 | Emergency (ER) | payer MEDICAID, SELFPAY ==
[2024-02-27 10:30] VITALS: BP 125/89; PULSE 97; RESP 18; TEMP 37.2; O2SAT 97
--- NOTE | 2024-02-27 10:52 | ED.VIS.GI ---
HPI HPI - GI History of Present Illness Chief Complaint: Abd Pain Informant: patient and family Narrative Narrative: 58-year-old female presenting to the emergency room presented to the emergency room with abdominal pain. Patient states on morning she developed vomiting diarrhea and some right-sided abdominal pain. She was seen in the emergency room on evening underwent blood urine and CT testing. CT did not demonstrate anything intra-abdominal to explain her symptoms. Blood work was essentially unremarkable. Urinalysis was contaminated but no overt infection. Patient states that the diarrhea has improved and was more of a loose stool today. She still does not have much of an appetite. Has not developed fever. She has not had a rash but did note that her cheeks looked flushed yesterday. Early this morning she developed an intense sharp stabbing pain in the right upper quadrant of the abdomen. [facility] Medical History Post-menopausal Wears glasses Wears dentures History of steroid therapy Arthritis Back pain Migraine headache Injury of head and neck History of IBS Gastric reflux Non-smoker Shortness of breath on exertion Leg cramps History of pain when walking History of stress test TMJ (dislocation of temporomandibular joint) Hyperlipemia Anxiety TIA (transient ischemic attack) Home Medications ?Medication ?Instructions ?Recorded ?Last Taken ?Type alprazolam 0.25 mg tablet 0.5 mg PO QHS 07/12/21 Unknown History aspirin 81 mg tablet 81 mg PO DAILY 07/12/21 03/19/22 History buspirone 15 mg tablet 15 mg PO BID 07/12/21 Unknown History sertraline 50 mg tablet 50 mg PO DAILY 07/12/21 03/20/22 History omeprazole 20 mg capsule,delayed 20 mg PO DAILY 03/11/22 Unknown History release oxycodone 5 mg tablet 5 mg PO Q4H PRN pain 7 days #42 03/20/22 Unknown Rx tabs dicyclomine 10 mg capsule 10 mg PO TID #30 caps 02/25/24 Unknown Rx ondansetron 4 mg disintegrating 4 mg PO Q6H PRN nausea and 02/25/24 Unknown Rx tablet vomiting #20 tabs oxycodone-acetaminophen 5 mg-325 1 tab PO Q6H PRN PRN Pain 3 days 02/27/24 Unknown Rx mg tablet #12 TABLETS Allergy/AdvReac Type Severity Reaction Status Date / Time latex Allergy Anaphylaxis Verified 02/25/24 18:13 Social History Smoking Status: Never smoker ROS ROS ED Constitutional Constitutional ED: Denies chills, fever(s) or weight loss Eyes Eyes: Denies change in vision or diplopia ENT ENT ED: Denies ear pain, rhinorrhea or sore throat Cardiovascular Cardiovascular: Denies chest pain, orthopnea, palpitations or racing heartbeat Respiratory/Chest Respiratory/Chest: Denies cough, dyspnea or orthopnea Gastrointestinal Gastrointestinal: Reports abdominal pain, diarrhea, nausea and vomiting Genitourinary Genitourinary ED: Denies dysuria, hematuria or urinary frequency Musculoskeletal Musculoskeletal: Denies arthralgias or myalgias Integumentary Denies abscess or rash Neurologic Neurologic: Denies headache(s) or weakness Psychiatric Psychiatric: Denies anxiety, depression, suicidal ideation or suicidal thoughts Endocrine Endocrinology: Denies polydipsia, polyphagia or polyuria Allergic/Immunologic Allergic/Immunologic ED: Denies mouth swelling, tongue swelling or urticaria EXAM Physical Exam Const Vital Signs: 02/27/24 10:30 02/27/24 12:29 Temperature 98.9 F Temperature Source Oral Pulse Rate 97 78 Respiratory Rate 18 16 Blood Pressure 125/89 H 129/76 H Blood Pressure Mean 101 93 Pulse Ox 97 98 Oxygen Delivery Method Room Air Room Air Positive well nourished and well developed General Appearance ED: well developed and NAD HEENT Reports normocephalic, head/scalp atraumatic and moist mucous membranes Eyes PERRL and EOMs intact bilaterally Neck no lymphadenopathy, supple and no JVD Resp normal respiratory effort and clear to auscultation bilaterally Cardio regular rate, regular rhythm and no murmurs GI Inspection: Negative for abdominal distention Auscultation: normoactive bowel sounds Palpation: soft and tender RUQ; Negative for guarding, rigid or rebound tenderness present Back/Spine no CVA tenderness and normal ROM Extremity normal to inspection General Extremety ED: Negative for edema General Extremity: Negative for edema Neuro oriented x3 and CN's II-XII intact bilaterally Sensorium / Orientation: alert Motor Exam: strength 5/5 throughout Psych mental status grossly normal Mood & Affect: Negative for depressed or tearful Skin no rashes or lesions noted and no wounds MDM MDM MDM Narrative Medical decision making narrative: Differential diagnosis would include acute cholecystitis colitis pancreatitis gastritis gastroenteritis dehydration electrolyte abnormalities acute hepatitis viral syndrome. Basic blood work shows her white count is down to 7.5 79.5 neutrophils platelet count 217. BMP shows glucose 125 normal LFTs normal lipase. CT of the abdomen pelvis was repeated this was performed with IV contrast. Please see radiologist full read for details. Essentially there are a few loops of dilated small bowel consistent with more of an enteritis. I do not see any obvious colitis. I do not see any liver inflammation or evidence of pancreatitis. He does not have urinary symptoms. I think this is most likely going to be viral in nature. She tells me she actually had similar symptoms about 2 months ago which resolved rather quickly compared to this episode. Patient states that the Bentyl she has been taking at home has not been effective. I can write for some oxycodone. Would recommend PCP reevaluation if symptoms are persisting on Thursday. History & Record Review Discussion w/independent historian: Patient and Family Lab Data Attestation: I reviewed the patient's lab results. Labs: Laboratory Results - last 24 hr 02/27/24 11:00 WBC 7.5 RBC 5.22 Hgb 15.0 Hct 45.5 MCV 87.2 MCH 28.7 MCHC 33.0 RDW Std Deviation 39.6 RDW Coeff of Ольга 12.5 Plt Count 217 MPV 10.2 Immature Gran % (Auto) 0.100 Neut % (Auto) 79.5 H Lymph % (Auto) 12.7 L Clare % (Auto) 7.4 Eos % (Auto) 0.0 Baso % (Auto) 0.3 Absolute Neuts (auto) 6.0 Absolute Lymphs (auto) 0.96 Nucleated RBC % 0 Sodium 138 Potassium 3.6 Chloride 104 Carbon Dioxide 27.0 Anion Gap 7 BUN 22 H Creatinine 0.86 Est GFR (MDRD) Af Amer 87 Est GFR (MDRD) Non-Af 72 BUN/Creatinine Ratio 25.5 H Glucose 125 H Calcium 8.6 Total Bilirubin 0.40 Direct Bilirubin 0.11 AST 31 ALT 46 Alkaline Phosphatase 59 Total Protein 7.0 Albumin 3.4 Globulin 3.6 Lipase 22 Radiography Diagnostic Testing: Clinical Impression(s) from Imaging Studies Abdomen/Pelvis CT 02/27/24 11:39 IMPRESSION: Enteritis with wall thickening could be infectious or inflammatory. No obstruction. Chronic diverticulosis. Mild free fluid. Electronically Signed: Hugo Daniel MD at 13:14 EST , Discharge Plan Triage Chief Complaint: Abd Pain ED Provider: Martin Davis Dx/Rx/DC Orders Clinical Impression: Abdominal pain, Enteritis Instructions: Viral Gastroenteritis Prescriptions: New oxycodone-acetaminophen 5-325 mg tablet 1 tab PO Q6H PRN PRN (Reason: Pain) 3 Days Qty: 12 0RF No Action alprazolam 0.25 mg Tablet 0.5 mg PO QHS aspirin 81 mg Tablet 81 mg PO DAILY sertraline 50 mg Tablet 50 mg PO DAILY buspirone 15 mg Tablet 15 mg PO BID omeprazole 20 mg Capsule,Delayed Release(Dr/Ec) 20 mg PO DAILY oxycodone 5 mg tablet 5 mg PO Q4H PRN (Reason: pain) 7 Days Qty: 42 0RF dicyclomine 10 mg capsule 10 mg PO TID Qty: 30 0RF ondansetron 4 mg tablet,disintegrating 4 mg PO Q6H PRN (Reason: nausea and vomiting) Qty: 20 0RF Primary Care Provider: Frankie Cedeño Referrals: Frankie Cedeño MD [Primary Care Provider] - As Needed Print Language: Maori Disposition Disposition: Home, Self Care
[2024-02-27] MEDS: 0.9% Normal Saline (1000mL) 1,000 ML 999 ML IV (11:02)
[2024-02-27] MEDS: Ketorolac 30 MG/ML Syringe IV (11:03)
[2024-02-27 11:13] LABS: Absolute Lymphocyte Count 0.96 X10^3/uL (0.83-4.51); Basophil# 0.02 X10^3/uL; Basophil% 0.3 % (0-1); Hematocrit 45.5 % (37-47); Lymphocyte # 0.96 X10^3/ul (0.83-4.51); Lymphocyte % 12.7 % (19-41); Mean Corpuscular Hgb 28.7 pg (27.0-32.0); Mean Corpuscular Volume 87.2 fL (81-99); Mean Platelet Vol. 10.2 fl (6.2-12.0); Monocyte# 0.56 X10^3/uL; Monocyte% 7.4 % (0-10); NRBC Flagged by Analyzer 0 % (0-5); Neutrophil # 5.98 X10^3/uL (2.7-7.7); Neutrophil % 79.5 % (47-70); Platelet Count 217 K/mm3 (150-450); RBC Distribution Width CV 12.5 % (11.6-14.6); RBC Distribution Width SD 39.6 fl (35.1-43.9); Red Blood Count 5.22 M/mm3 (4.2-5.4); White Blood Count 7.5 K/mm3 (4.4-11.0)
[2024-02-27 11:28] LABS: AST(SGOT) 31 U/L (15-37); Alanine Aminotransfer ALT/SGPT 46 U/L (13-56); Albumin, Serum 3.4 g/dL (3.2-5.0); Alkaline Phosphatase 59 U/L (45-117); Anion Gap 7 (5-15); BUN 22 mg/dL (7-18); BUN/Creat Ratio 25.5 RATIO (10-20); Bilirubin, Direct 0.11 mg/dL (0.00-0.30); Calcium,Total 8.6 mg/dL (8.5-10.1); Chloride 104 mmol/L (98-107); Creatinine, Serum 0.86 mg/dL (0.55-1.02); EST Glomerular Filtration Rate 72 mL/min (>60); Est Glom Filt Rate - Afr Amer 87 mL/min (>60); Globulin 3.6 g/dL (2.2-4.2); Glucose 125 mg/dL (74-106); Lipase 22 U/L (13-75); Potassium 3.6 mmol/L (3.5-5.1); Sodium Level 138 mmol/L (136-145)
--- NOTE | 2024-02-27 11:39 | CT_ITS ---
STUDY: CT ABDOMEN AND PELVIS WITH CONTRAST REASON FOR EXAM: Female, 58 years old. Abdominal pain RADIATION DOSAGE (If Supplied By Facility): CTDIvol = ( 20.13 ) mGy, DLP = ( 1042.32 ) mGycm TECHNIQUE: Transaxial images were obtained from the dome of the diaphragm to the symphysis pubis without oral contrast. IV 100mL Isovue-[id number] was administered. Sagittal and coronal images were reconstructed. Individualized dose optimization techniques were used for this CT. COMPARISON: February 25, 2024 FINDINGS: The visualized lung bases are unremarkable. The visualized portions of the heart are within normal limits. Normal liver. Normal gallbladder and extrahepatic biliary system. Normal spleen. Normal pancreas. Normal bilateral adrenal glands. Normal right kidney. Normal left kidney. Normal visualized stomach. There is wall thickening involving the left lower abdominal loops of small intestine. There are a few colonic diverticula consistent with diverticulosis. The appendix is visualized and appears normal. Normal abdominal aorta. Normal inferior vena cava. Normal retroperitoneum. Normal urinary bladder. Normal visualized uterus. There is mild free fluid in the pelvis. Normal abdominal wall. Normal osseous structures. CT/Abdomen/Pelvis W IV Cont ONLY IMPRESSION: Enteritis with wall thickening could be infectious or inflammatory. No obstruction. Chronic diverticulosis. Mild free fluid. Electronically Signed: Hugo Daniel MD at 13:14 EST ,
[2024-02-27] MEDS: oxyCODONE 5 MG Tablet PO (11:59)
[2024-02-27 12:29] VITALS: BP 129/76; PULSE 78; RESP 16; O2SAT 98
[2024-02-27 14:00] VITALS: RESP 16; O2SAT 95
[2024-02-27 14:08] VITALS: BP 120/80; PULSE 92; RESP 14; TEMP 36.6; O2SAT 99
[2024-02-27 14:12] VITALS: BP 120/80; PULSE 92; RESP 14; TEMP 36.6; O2SAT 99
== END 2024-02-27 14:10 | disposition home or self-care (01) ==
PROVIDERS: Emergency Provider Emergency Medicine; PCP Family Medicine; Visit Provider Emergency Medicine
DX: K52.9 Noninfective gastroenteritis and colitis, unspecified (principal)
CPT/HCPCS: 74177; 80048; 80076; 83690; 85025; 96361; 96374; 99283; Q9967; A4216